=== PATIENT | female | born 1950 | race Caucasian/White ===

== ENCOUNTER → 2018-06-15 | Outpatient (CLI) | payer MEDICARE | LOC: MAMMO 08:52 | PROVIDERS: ATTEND Internal Medicine | DX: Z12.31 Encounter for screening mammogram for malignant neoplasm of breast (principal) | CPT/HCPCS: 77067 ==

== ENCOUNTER → 2020-04-17 | Outpatient (CLI) | payer MEDICARE ==
--- NOTE | 2020-04-17 18:02 | Diagnostic Imaging Report ---
X-ray 3 views of the knee. HISTORY: Pain. COMPARISON: None available. FINDINGS: Bones: No acute displaced fracture. Osseous alignment is within normal limits. Joints: The joint spaces are well-maintained. Soft tissues: The soft tissues appear unremarkable. IMPRESSION: No acute radiographic abnormality. Signed by: Kit Wolf MD on 04/17/2020 5:59 PM
== END ==
LOC: MAMMO 16:25
PROVIDERS: ATTEND Internal Medicine
DX: Z12.31 Encounter for screening mammogram for malignant neoplasm of breast (principal); M25.561 Pain in right knee
CPT/HCPCS: 77067

== ENCOUNTER → 2021-10-29 | Outpatient (CLI) | payer MEDICARE, OTHER | LOC: MAMMO 16:51 | PROVIDERS: ATTEND Internal Medicine | DX: Z12.31 Encounter for screening mammogram for malignant neoplasm of breast (principal) | CPT/HCPCS: 77067 ==

== ENCOUNTER → 2024-03-05 | Outpatient (REF) | payer MEDICARE, OTHER | LOC: MAMMO 09:19 | PROVIDERS: ATTEND Internal Medicine | DX: Z12.31 Encounter for screening mammogram for malignant neoplasm of breast (principal) | CPT/HCPCS: 77067 ==